=== PATIENT | male | born 1990 | race Caucasian/White ===

== ENCOUNTER 2019-12-15 11:12 | Emergency (ER) | payer OTHER, SELFPAY ==
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
[2019-12-15 11:21] VITALS: BP 123/78; PULSE 84; RESP 16; TEMP 37.1; O2SAT 100
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
[2019-12-15] MEDS: ACETAMINOPHEN 500 MG TABLET 1000 MG PO (12:16)
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
== END 2019-12-15 12:25 | disposition home or self-care (01) ==
PROVIDERS: Emergency Provider Emergency Medicine
DX: S60.222A Contusion of left hand, initial encounter (principal); W22.8XXA Striking against or struck by other objects, initial encounter
CPT/HCPCS: 73130; 99283; A9270